=== PATIENT | female | born 1990 | race Caucasian/White ===

== ENCOUNTER 2020-02-26 10:26 | Emergency (ER) | payer MEDICAID, SELFPAY ==
[2020-02-26 11:11] VITALS: BP 151/89; PULSE 72; RESP 16; TEMP 36.8; O2SAT 99
--- NOTE | 2020-02-26 11:42 | ED.EAR ---
HPI - Ear Problem General Chief complaint: Ear Stated complaint: R Ear infection/ Vomiting Source: patient Mode of arrival: ambulatory Limitations: no limitations History of Present Illness HPI Narrative: this 29-year-old complains of severe pain in her right ear which started 2 days ago. It is associated with nausea and vomiting 2 times last night and once this morning. She has nausea currently. She denies fevers, chills, runny nose sore throat cough. She has had minor left-sided abdominal discomfort for the last day. No diarrhea Related Data Allergies Allergy/AdvReac Type Severity Reaction Status Date / Time No Known Allergies Allergy Verified 02/26/20 11:14 Review of Systems Constitutional: Constitutional: Reports no additional constitutional complaints ENT: Reports nasal congestion Neurologic: Comments: headache Course Course Emergency Course: At 18:10 pt called. Pharmacy would not take script. A second script was issued. Vital Signs Vital signs: Vital Signs Temperature 36.8 C 02/26/20 11:11 Pulse Rate 72 02/26/20 11:11 Respiratory Rate 16 02/26/20 11:11 Blood Pressure 151/89 H 02/26/20 11:11 Pulse Oximetry 99 02/26/20 11:11 Temperature 36.8 C 02/26/20 11:11 Pulse Rate 72 02/26/20 11:11 Respiratory Rate 20 02/26/20 12:06 Blood Pressure 151/89 H 02/26/20 11:11 Pulse Oximetry 99 02/26/20 11:11 Medical Decision Making Vital Signs Vital Signs: Vital Signs Temperature 36.8 C 02/26/20 11:11 Pulse Rate 72 02/26/20 11:11 Respiratory Rate 16 02/26/20 11:11 Blood Pressure 151/89 H 02/26/20 11:11 Pulse Oximetry 99 02/26/20 11:11 Temperature 36.8 C 02/26/20 11:11 Pulse Rate 72 02/26/20 11:11 Respiratory Rate 20 02/26/20 12:06 Blood Pressure 151/89 H 02/26/20 11:11 Pulse Oximetry 99 02/26/20 11:11 Discharge Plan Discharge Clinical Impression: Otitis externa Patient Disposition: Home, Self-Care Condition: Stable Instructions: Antibiotic Form, Otitis Externa (ED) Additional Instructions: Return to E.D. if fever or chills. Recheck ear if not better by tomorrow or pain free 02/27. Prescriptions: New hydrocodone-acetaminophen [[place]] 5-325 mg tablet 1 tablet PO Q4H PRN (Reason: pain) Qty: 10 RF: 0 ciprofloxacin HCl [Cipro] 500 mg tablet 500 mg PO Q12H Qty: 20 RF: 0 ondansetron HCl [Zofran] 4 mg tablet 4 mg PO Q6H PRN (Reason: nausea and vomiting) Qty: 6 RF: 0 Follow-up/Referrals: UNKNOWN,DOCTOR [Primary Care Provider] - Time of Disposition: 12:02 Discharge Date/Time: 02/26/20 12:09
[2020-02-26] MEDS: ONDANSETRON HCL ODT 4 MG TABLET PO (11:52)
--- NOTE | 2020-02-26 12:01 | PC.NURSE ---
ERP AT BEDSIDE FOR EAR WICK INSERTION WHILE USING CORTISPORIN GTT
[2020-02-26 12:06] VITALS: RESP 20
== END 2020-02-26 12:09 | disposition home or self-care (01) ==
PROVIDERS: Emergency Provider Family Medicine
DX: H60.91 Unspecified otitis externa, right ear (principal)
CPT/HCPCS: 99281; 99283; A9270

== ENCOUNTER 2020-04-23 08:35 | Emergency (ER) | payer MEDICAID, SELFPAY ==
[2020-04-23 08:40] VITALS: BP 121/76; PULSE 94; RESP 16; TEMP 36.7; O2SAT 98
--- NOTE | 2020-04-23 09:17 | ED.GENADULT ---
HPI - General Adult General Chief complaint: Ear Stated complaint: ear infection History of Present Illness HPI narrative: Florence is a 30F with a PMH of recurrent otitis externa that presented to clinic with bilateral ear pain. She was diagnosed with otitis externa in her right ear 1 week ago and was treated at [facility] with drop (unknown name). She was getting better but 2 days ago she started having pain in her left ear. She used the drops but ran out and is now having more pain that is also associated with nausea and 2 episodes of NBNB vomiting. No CP, SOB, diarrhea, headache, hearing or vision changes. Related Data Allergies Allergy/AdvReac Type Severity Reaction Status Date / Time No Known Allergies Allergy Verified 02/26/20 11:14 Review of Systems Constitutional: Constitutional: Reports no additional constitutional complaints Eyes: Eyes: Reports no additional eye complaints ENT: Reports as per HPI Cardiovascular: Cardiovascular: Reports no additional cardiovascular complaints Respiratory: Respiratory: Reports no additional respiratory complaints Gastrointestinal: Gastrointestinal: Reports nausea and Reports vomiting Genitourinary: Genitourinary: Reports no additional female genitourinary complaints Musculoskeletal: Musculoskeletal: Reports no additional musculoskeletal complaints Integumentary/Breasts: Skin/Breast: Reports system reviewed and no additional complaints, except as docu Neurologic: Reports system reviewed and no additional complaints, except as documented Psychiatric: Psychiatric: Reports no additional psychiatric complaints Endocrine: Endocrine: Reports no additional endocrine complaints Hematologic/Lymphatic: Hematologic/Lymphatic: Reports no additional hematologic/lymphatic complaints Allergic/Immunologic: Allergic/Immunologic: Reports no additional allergic/immunologic complaints Exam Const: General: no acute distress and alert Orientation/consciousness: patient oriented x3 Limitations: No altered mental status HENMT: Other: significant erythema and swelling in the external ear canal bilaterally but much worse on the left. Both ears are tender to manipulation, with the left hurting more. Submandibular lymphadenopathy bilaterally Eyes: Pupils: Equal, round and reactive pupils present Neck: Neck: normal visual inspection Resp: Effort & Inspection: normal respiratory effort, not labored and not tachypneic Cardio: Rate: regular rate Other: No edema GI: GI Palp: Yes Soft to palpation and No Tenderness to palpation present (GI) Skin: General skin exam: normal color Rashes: no rashes Neuro: General: patient oriented x3 and moves all extremities Extrem: General: normal to inspection Psych: Mental Status: mental status grossly normal Course Course Emergency Course: Florence was seen and evaluated. She was given toradol for pain, and zofran for nausea. She was discharged with a script for ciprodex ear drops, zofran and a list of PCPs in the area to f/u with. Vital Signs Vital signs: Vital Signs Temperature 98.1 F 04/23/20 08:40 Pulse Rate 94 04/23/20 08:40 Respiratory Rate 16 04/23/20 08:40 Blood Pressure 121/76 04/23/20 08:40 Pulse Oximetry 98 04/23/20 08:40 Temperature 98.1 F 04/23/20 08:40 Pulse Rate 94 04/23/20 08:40 Respiratory Rate 16 04/23/20 08:40 Blood Pressure 121/76 04/23/20 08:40 Pulse Oximetry 98 04/23/20 08:40 Medical Decision Making Vital Signs Vital Signs: Vital Signs Temperature 98.1 F 04/23/20 08:40 Pulse Rate 94 04/23/20 08:40 Respiratory Rate 16 04/23/20 08:40 Blood Pressure 121/76 04/23/20 08:40 Pulse Oximetry 98 04/23/20 08:40 Temperature 98.1 F 04/23/20 08:40 Pulse Rate 94 04/23/20 08:40 Respiratory Rate 16 04/23/20 08:40 Blood Pressure 121/76 04/23/20 08:40 Pulse Oximetry 98 04/23/20 08:40 Discharge Plan Discharge Clinical Impression: Otitis externa
[2020-04-23] MEDS: KETOROLAC (*BKC) 60 MG/2 ML VIAL 30 MG IM (09:28)
[2020-04-23] MEDS: ONDANSETRON HCL ODT 4 MG TABLET PO (09:29)
== END 2020-04-23 09:38 | disposition home or self-care (01) ==
PROVIDERS: Emergency Provider Family Medicine
DX: H60.93 Unspecified otitis externa, bilateral (principal)
CPT/HCPCS: 96372; 99283; A9270; J1885

== ENCOUNTER 2020-10-12 10:51 | Emergency (ER) | payer BC, SELFPAY ==
--- NOTE | ~2020-10-12 | CT_ITS ---
EXAMINATION: CT brain wo con INDICATION: Headache COMPARISON: None TECHNIQUE: Standard unenhanced head CT. The dose-length product (DLP) was 529.67 mGy-cm. The mA was a djusted according to patient size. Iterative reconstruction technique was employed. FINDINGS: There is no intracranial hemorrhage, acute infarction, or abnormal mass lesion. The inferio r most aspect of the right temporal lobe is excluded from the examination. The ventricles are normal. There is no abnormal mass effect or midline shift. The saleh-white matter differentiation is normal. The basal cisterns are patent. The orbits are normal. There is near complete opacification of the lef t frontal sinus. There is mucosal thickening of the right frontal sinus. IMPRESSION: 1. No acute intracranial abnormality. 2. Significant left frontal sinusitis. Reviewed, dictated and finalized at location A. RMATION CLERK
[2020-10-12 11:20] VITALS: BP 110/59; PULSE 66; RESP 15; TEMP 37; O2SAT 96
--- NOTE | 2020-10-12 11:22 | ED.HA ---
HPI - Headache General Chief Complaint: Headache Stated Complaint: Vomiting,Headache Time Seen by Provider: 10/12/20 11:22 Source: patient Mode of arrival: ambulatory Limitations: no limitations History of Present Illness HPI Narrative: 30-year-old woman comes in today complaining of 2-3 days of headache, photophobia and vomiting. Patient states that she has had similar headaches with vomiting and photophobia intermittently over the last 2 years. She usually takes some Excedrin for them. Patient states she has been exposed to 2 people with COVID-19 but is not had any other sick exposures. She denies cough, cold symptoms, shortness of breath, abdominal pain, diarrhea, rash, neck stiffness, or recent head injury. She has no history of seizures MD elicited complaint: headache Onset (ago): day(s) (2-3) Onset description: gradually Location: frontal Severity: severe Quality & Timing: throbbing Exacerbating factors: light Relieving factors: nothing Associated symptoms: nausea, vomiting and photophobia Treatments prior to arrival: other ( Excedrin) Related Data Home Medications Medication Instructions Recorded Confirmed citalopram 20 mg PO DAILY 10/12/20 10/12/20 Allergies Allergy/AdvReac Type Severity Reaction Status Date / Time No Known Allergies Allergy Verified 04/23/20 09:58 Review of Systems Constitutional: Constitutional: Denies chills, Denies fever(s) and Denies weakness Eyes: Eyes: Denies change in vision and Reports photophobia ENT: Denies dysphagia, Denies nasal congestion and Denies sore throat Cardiovascular: Cardiovascular: Denies chest pain and Denies radiating jaw, neck or arm pain Respiratory: Respiratory: Denies cough, Denies dyspnea and Denies wheezing Gastrointestinal: Gastrointestinal: Denies abdominal pain, Denies diarrhea, Reports nausea and Reports vomiting Genitourinary: Genitourinary: Denies nocturia and Denies dysuria Musculoskeletal: Musculoskeletal: Denies arthralgias and Denies joint swelling Integumentary/Breasts: Skin/Breast: Denies pruritus, Denies erythema and Denies rash Neurologic: Denies vertigo, Denies dizziness and Denies syncope Hematologic/Lymphatic: Hematologic/Lymphatic: Denies easy bleeding and Denies easy bruising Allergic/Immunologic: Allergic/Immunologic: Denies lip swelling and Denies throat swelling [facility] Past Medical History Medical History (Updated 10/12/20 @ 13:34 by Branden España MD) Depression Surgical History Surgical History (Updated 10/12/20 @ 12:08 by Branden España MD) H/O nasal polypectomy H/O wrist surgery H/O: Social History Social History Smoking status: Never smoker Alcohol intake: never Substance use type: marijuana Living arrangements: with family Exam Const: General: healthy appearing and alert Nutritional Appearance: obese Orientation/consciousness: patient oriented x3 Other: moderate acute distress. HENMT: Head: normal to inspection Ears: external ears normal, TM's normal bilaterally and EAC's normal Throat: posterior oropharynx normal and uvula midline Eyes: Conjunctivae: conjunctivae normal Pupils: Equal, round and reactive pupils present EOM: EOMs intact bilaterally Direct Ophthalmoscopy: photophobia Neck: Neck: no meningeal signs Resp: Effort & Inspection: normal respiratory effort and not labored Auscultation: clear to auscultation bilaterally, no rales, no rhonchi and no wheezes Cardio: Rate: regular rate Rhythm: regular rhythm Heart sounds: no murmurs Skin: General skin exam: normal color, no jaundice and no pallor Rashes: no rashes Neuro: General: patient oriented x3, moves all extremities, no focal motor deficits and CN's II-XI intact bilaterally Speech: normal speech Gait exam (Neuro): Normal gait present Extrem: General: normal to inspection and no clubbing, cyanosis or edema Psych: Appearance: grossly
[2020-10-12] MEDS: SODIUM CHLORIDE 0.9% IV 1,000 ML 999 ML IV CONT (11:51)
[2020-10-12] MEDS: ONDANSETRON INJ 4 MG/2 ML VIAL IV PUSH (11:51)
[2020-10-12 12:01] LABS: Basophils Absolute Auto 0.05 K/mm3 (0.00-0.10); Basophils Percent Auto 0.8 % (0.0-1.0); Eosinophils Absolute Auto 0.26 K/mm3 (0.02-0.50); Hematocrit 42.8 % (35.0-49.0); Immature Granulocyte Absolute 0.04 K/mm3 (0.00-0.00); Immature Granulocyte Percent A 0.6 % (0.0-0.0); Lymphocytes Absolute Auto 2.12 K/mm3 (1.10-4.50); Mean Corpuscular Hemoglobin 33.3 pg (27.0-31.0); Mean Corpuscular Volume 95.1 fL (78.0-102.0); Mean Platelet Volume 10.2 fl (9.2-11.8); Monocytes Absolute Auto 0.35 K/mm3 (0.10-0.90); Monocytes Percent Auto 5.5 % (2.0-11.0); Neutrophils Absolute Auto 3.6 K/mm3 (1.7-7.2); Neutrophils Percent Auto 56.1 % (50.0-70.0); Platelet Count Result 208 K/mm3 (150-420); Red Cell Distribution Width 12.2 % (11.6-14.4); White Blood Count 6.4 K/mm3 (4.8-10.8)
[2020-10-12 12:03] LABS: Add Urine Microscopic? YES; Appearance Urine Sl Cloudy (Clear); Bilirubin Urine 1+ (Negative); Blood Urine Negative (Negative); Color Urine Yellow (Yellow); Glucose Urine UA Negative (Negative); Ketones Urine Negative (Negative); Leukocyte Esterase Ur Trace (Negative); Nitrate Urine Negative (Negative); Protein Urine Negative (Negative); Specific Grav Ur >= 1.030 (1.010-1.020)
[2020-10-12 12:08] LABS: Amphetamine Screen Urine Negative (Negative); Barbiturate Screen Urine Negative (Negative); Benzodiazepines Screen Urine Negative (Negative); Cannabinoid Screen Urine Positive (Negative); Cocaine Screen Urine Negative (Negative); Methadone Screen Urine Negative (Negative); Opiate Screen Urine Negative (Negative); Phencyclidine Screen Urine Negative (Negative)
[2020-10-12 12:11] LABS: Pregnancy On Board Control Positive; RBC Urine 0-2 /hpf (0-2); Squamous Epithelial Cell Urine Moderate /hpf (Few); Urine Pregnancy Test Negative
[2020-10-12 12:12] LABS: Bacteria Urine 1+ /hpf; Mucus Urine Moderate /lpf
[2020-10-12 12:15] LABS: Alanine Aminotransferase 43 U/L (14-59); Albumin Level 4.3 g/dL (3.4-5.0); Alkaline Phosphatase 82 U/L (46-116); Anion Gap 8 mmol/L (8-16); Aspartate Amino Transferase 23 U/L (15-37); Bilirubin,Total 1.4 mg/dL (0.00-1.00); Blood Urea Nitrogen 15 mg/dL (7-18); Calcium 9.1 mg/dL (8.5-10.1); Carbon Dioxide 31 mmol/L (21-32); Chloride 100 mmol/L (98-108); Estimated Glomerular Filt Rate > 60; Glucose 88 mg/dL (70-99); Lipase 41 U/L (73-393); Osmolality Calculated 287 mOsm/kg (285-295); Potassium 3.7 mmol/L (3.5-5.1); Sodium 139 mmol/L (136-145); Total Protein 7.8 g/dL (6.4-8.2)
[2020-10-12 12:22] LABS: SARS-CoV-2 Ag Negative (Negative)
[2020-10-12 12:22] LABS: Influenza Control Valid (Valid)
[2020-10-12] MEDS: PROMETHAZINE HCL 25 MG/ML AMPUL IM (13:00)
[2020-10-12] MEDS: KETOROLAC 30 MG/ML VIAL (*BKC) IV PUSH (13:00)
[2020-10-12 14:02] VITALS: BP 101/79
== END 2020-10-12 14:04 | disposition home or self-care (01) ==
PROVIDERS: Emergency Provider Emergency Medicine
DX: R51.9 Headache, unspecified (principal); J01.10 Acute frontal sinusitis, unspecified
CPT/HCPCS: 36415; 70450; 80053; 80307; 81001; 81025; 83690; 85025; 87426; 87804; 96361; 96372; 96374; 96375; 99283; 99284; C9803; J1885; J2405; J2550; J7030

== ENCOUNTER 2020-12-27 11:50 | Emergency (ER) | payer BC, SELFPAY ==
--- NOTE | ~2020-12-27 | CT_ITS ---
EXAMINATION: CT abdomen pelvis w con INDICATION: Lower abdominal pain TECHNIQUE: Computed tomographic images of the abdomen and pelvis were obtained after the administrati on of 100 cc of Omnipaque 350 intravenous contrast. The dose-length product (DLP) was 682.88 mGy-cm. Automated exposure control and iterative reconstruction technique were employed. COMPARISON: None available FINDINGS: The lung bases are clear. The heart size is normal. The liver, spleen, gallbladder, and adr enal glands are normal. There is focal low attenuation in the head of the pancreas with normal appear ing remainder of the pancreas and no pancreatic ductal dilatation, likely reflecting fatty infiltrati on. The kidneys are unremarkable. The appendix is normal. No pathologically enlarged abdominal or pel debbie lymph nodes are identified. There is no free intraperitoneal gas or evidence of bowel obstruction . IMPRESSION: 1. No CT correlate for the patient's symptoms. Reviewed, dictated and finalized at location A.
[2020-12-27 12:20] VITALS: BP 133/92; PULSE 97; RESP 20; TEMP 36.9; O2SAT 97
[2020-12-27 12:50] VITALS: BP 120/72
[2020-12-27] MEDS: DICYCLOMINE HCL INJ 20 MG/2 ML VIAL IM (13:00)
[2020-12-27] MEDS: ONDANSETRON HCL ODT 4 MG TABLET PO ×2 (13:00→14:26)
[2020-12-27 13:02] LABS: Basophils Absolute Auto 0.03 K/mm3 (0.00-0.10); Basophils Percent Auto 0.4 % (0.0-1.0); Eosinophils Absolute Auto 0.18 K/mm3 (0.02-0.50); Eosinophils Percent Auto 2.4 % (1.0-6.0); Hematocrit 43.2 % (35.0-49.0); Immature Granulocyte Absolute 0.02 K/mm3 (0.00-0.00); Immature Granulocyte Percent A 0.3 % (0.0-0.0); Lymphocytes Absolute Auto 1.12 K/mm3 (1.10-4.50); Lymphocytes Percent Auto 15.2 % (18.0-42.0); Mean Corpuscular HGB Conc 34.7 g/dL (32.0-36.0); Mean Corpuscular Hemoglobin 32.8 pg (27.0-31.0); Mean Corpuscular Volume 94.3 fL (78.0-102.0); Mean Platelet Volume 10.3 fl (9.2-11.8); Monocytes Absolute Auto 0.34 K/mm3 (0.10-0.90); Monocytes Percent Auto 4.6 % (2.0-11.0); Neutrophils Absolute Auto 5.7 K/mm3 (1.7-7.2); Neutrophils Percent Auto 77.1 % (50.0-70.0); Platelet Count Result 194 K/mm3 (150-420); Red Blood Count 4.58 M/mm3 (4.20-5.40); Red Cell Distribution Width 11.8 % (11.6-14.4); White Blood Count 7.4 K/mm3 (4.8-10.8)
[2020-12-27 13:08] LABS: Add Urine Microscopic? YES; Appearance Urine Clear (Clear); Bilirubin Urine Negative (Negative); Blood Urine Negative (Negative); Color Urine Yellow (Yellow); Glucose Urine UA Negative (Negative); Ketones Urine Negative (Negative); Leukocyte Esterase Ur Negative (Negative); Nitrate Urine Negative (Negative); Protein Urine 1+ (Negative); Specific Grav Ur 1.015 (1.010-1.020); Urobilinogen Urine 0.2 mg/dL (0.2-1.0); pH Urine 8.5 (5.0-8.0)
--- NOTE | 2020-12-27 13:08 | PC.NURSE ---
pt ambulated to bathroom slowly with stand by assist from this rn. back to room , head of bed elevated for comfort, call baltazar in reach.
[2020-12-27 13:12] LABS: Bacteria Urine 1+ /hpf; Mucus Urine Moderate /lpf; RBC Urine None seen /hpf (0-2); Squamous Epithelial Cell Urine Few /hpf (Few); Urine Pregnancy Test Negative; WBC Urine None seen /hpf (0-3)
[2020-12-27 13:13] LABS: Pregnancy On Board Control Positive
[2020-12-27 13:15] LABS: Alanine Aminotransferase 25 U/L (14-59); Albumin Level 3.9 g/dL (3.4-5.0); Alkaline Phosphatase 85 U/L (46-116); Anion Gap 9 mmol/L (8-16); Aspartate Amino Transferase 16 U/L (15-37); Bilirubin,Total 1.1 mg/dL (0.00-1.00); Blood Urea Nitrogen 17 mg/dL (7-18); Calcium 8.8 mg/dL (8.5-10.1); Carbon Dioxide 27 mmol/L (21-32); Chloride 102 mmol/L (98-108); Estimated CRCL calculation 133 ml/min; Estimated Glomerular Filt Rate > 60; Glucose 106 mg/dL (70-99); Lipase 32 U/L (73-393); Osmolality Calculated 287 mOsm/kg (285-295); Potassium 3.7 mmol/L (3.5-5.1); Sodium 138 mmol/L (136-145); Total Protein 7.1 g/dL (6.4-8.2)
[2020-12-27 13:20] LABS: Amphetamine Screen Urine Negative (Negative); Barbiturate Screen Urine Negative (Negative); Benzodiazepines Screen Urine Negative (Negative); Cannabinoid Screen Urine Positive (Negative); Cocaine Screen Urine Negative (Negative); Methadone Screen Urine Negative (Negative); Opiate Screen Urine Negative (Negative); Phencyclidine Screen Urine Negative (Negative)
[2020-12-27] MEDS: KETOROLAC 30 MG/ML VIAL (*BKC) IV PUSH (14:25)
[2020-12-27] MEDS: LACTATED RINGERS 1,000 ML 999 ML IV CONT (14:25)
--- NOTE | 2020-12-27 16:02 | ED.ABDPAIN ---
HPI - Abdominal Pain General Chief Complaint: Abdominal Pain Stated Complaint: abd pain, nausea, vomitting, diarrhea Time Seen by Provider: 12/27/20 12:40 Source: patient Mode of arrival: ambulatory Limitations: no limitations History of Present Illness HPI narrative: Patient comes in with nausea and vomiting since Tuesday morning. She comes in because she says this has been ongoing, and she has had no relief. She has had associated loose stools. This has been ongoing not relieved by measures taken at home. MD elicited complaint: abdominal pain Onset (ago): hour(s) Pain Consistency: intermittent and colicky Location: diffuse Severity: moderate Quality: cramping Related Data Home Medications Medication Instructions Recorded Confirmed citalopram 20 mg PO DAILY 10/12/20 12/27/20 Allergies Allergy/AdvReac Type Severity Reaction Status Date / Time apple Allergy Swelling Verified 12/27/20 13:46 of Lip/Tongue/Throat banana Allergy Swelling Verified 12/27/20 13:46 of Lip/Tongue/Throat cinnamon Allergy Swelling Verified 12/27/20 13:46 of Lip/Tongue/Throat orange Allergy Swelling Verified 12/27/20 13:46 of Lip/Tongue/Throat pollen extracts Allergy Swelling Verified 12/27/20 13:46 of Lip/Tongue/Throat Review of Systems Constitutional: Constitutional: Reports no additional constitutional complaints Eyes: Eyes: Reports no additional eye complaints ENT: Reports system reviewed and no additional complaints, except as documented Cardiovascular: Cardiovascular: Reports no additional cardiovascular complaints Respiratory: Respiratory: Reports no additional respiratory complaints Gastrointestinal: Gastrointestinal: Reports no additional gastrointestinal complaints Genitourinary: Genitourinary: Reports no additional female genitourinary complaints Musculoskeletal: Musculoskeletal: Reports no additional musculoskeletal complaints Integumentary/Breasts: Skin/Breast: Reports system reviewed and no additional complaints, except as docu Neurologic: Reports system reviewed and no additional complaints, except as documented Psychiatric: Psychiatric: Reports no additional psychiatric complaints Endocrine: Endocrine: Reports no additional endocrine complaints Hematologic/Lymphatic: Hematologic/Lymphatic: Reports no additional hematologic/lymphatic complaints PMF Past Medical History Medical History Depression Surgical History Surgical History H/O nasal polypectomy H/O wrist surgery H/O: Family History Family History Father COPD (chronic obstructive pulmonary disease) Social History Social History Smoking status: Never smoker Alcohol intake: never Substance use type: marijuana Exam Const: General: no acute distress Orientation/consciousness: patient oriented x3 HENMT: Head: normal to inspection Face and sinus: normal facial exam Mouth: Yes Normal oral and palatal mucosa present Throat: posterior oropharynx normal Eyes: Conjunctivae: conjunctivae normal Neck: Neck: normal visual inspection Chest: Chest palpation & inspection: normal inspection of the chest Resp: Effort & Inspection: normal respiratory effort Auscultation: clear to auscultation bilaterally Cardio: Rate: regular rate Rhythm: regular rhythm GI: GI Palp: Yes Soft to palpation (nontender) Skin: General skin exam: normal color Neuro: General: patient oriented x3 and moves all extremities Extrem: General: normal to inspection Psych: Appearance: grossly normal Mental Status: mental status grossly normal Thought content: Yes Normal thought content present Course Course Emergency Course: Labs were reviewed. She was given bentyl 20mg Im and zofran 4
[2020-12-27 16:13] VITALS: BP 112/63; PULSE 59; RESP 20; TEMP 36.9; O2SAT 98
--- NOTE | 2020-12-27 16:14 | PC.NURSE ---
primary care provider list given to pt.
== END 2020-12-27 16:15 | disposition home or self-care (01) ==
PROVIDERS: Emergency Provider Emergency Medicine
DX: R10.9 Unspecified abdominal pain (principal)
CPT/HCPCS: 36415; 74177; 80053; 80307; 81001; 81025; 83690; 85025; 96361; 96372; 96374; 99283; 99284; A9270; J0500; J1885; J7120; Q9967

== ENCOUNTER 2021-04-12 19:30 | Emergency (ER) | payer BC, SELFPAY ==
--- NOTE | ~2021-04-12 | CT_ITS ---
EXAMINATION: CT brain wo [facility] EXAM DATE: 04/12/2021 20:31 INDICATION: Fall, head injury. TECHNIQUE: Spiral CT of the head was performed without contrast. Axial, coronal and sagittal images were reviewed. The dose-length product (DLP) for this examination was 605.33 mGy-cm. The exposure w as tailored according to patient size, and iterative reconstruction (ASIR) was used as additional dos e reduction technique. Comparison is made to prior examination from 10/12/2020. FINDINGS: There is no acute intraparenchymal hemorrhage. No evidence of intraparenchymal brain mass lesion. No evidence of acute infarction. There is no mass effect or midline shift. The ventricles are normal in size. There are no extra-axial collections. There are no acute calvarial fractures. T he orbits are unremarkable. Soft tissue is unremarkable. Mild to moderate right frontal and ethmoid mucoperiosteal thickening. IMPRESSION: No acute intracranial findings. Reviewed, dictated and finalized at location A.
[2021-04-12 19:30] VITALS: BP 116/77; PULSE 72; RESP 20; TEMP 37; O2SAT 98
--- NOTE | 2021-04-12 19:38 | ED.HEATRA ---
HPI - Head Injury General Chief complaint: Head Injury Stated complaint: concussion Source: patient and RN notes reviewed Mode of arrival: wheelchair Limitations: no limitations History of Present Illness HPI Narrative: Last evening patient was getting out of an above ground pool and slipped on the ladder and fell into some bushes striking her left cheek and head. She is not sure if she lost consciousness. Today she has had more difficulty at work. She has had headache. She thinks she may have had a concussion. Complaint: head injury Onset (ago): hour(s) (20) Mechanism of Injury: fall Place: home Loss of Consciousness: unsure Location of injury: occipital and face Severity: moderate Quality: dull and aching Associated symptoms: weakness (generalized) Related Data Home Medications Medication Instructions Recorded Confirmed No Home Medications 04/12/21 04/12/21 Allergies Allergy/AdvReac Type Severity Reaction Status Date / Time apple Allergy Swelling Verified 12/27/20 13:46 of Lip/Tongue/Throat banana Allergy Swelling Verified 12/27/20 13:46 of Lip/Tongue/Throat cinnamon Allergy Swelling Verified 12/27/20 13:46 of Lip/Tongue/Throat orange Allergy Swelling Verified 12/27/20 13:46 of Lip/Tongue/Throat pollen extracts Allergy Swelling Verified 12/27/20 13:46 of Lip/Tongue/Throat Review of Systems Review of Systems: All systems reviewed & are unremarkable except as noted in HPI and below Constitutional: Constitutional: Denies chills and Denies fever(s) Cardiovascular: Cardiovascular: Denies chest pain Respiratory: Respiratory: Denies dyspnea Gastrointestinal: Gastrointestinal: Denies diarrhea, Denies nausea and Denies vomiting Neurologic: Denies dizziness, Reports headache(s) and Denies focal weakness PMFSH Past Medical History Medical History Depression Surgical History Surgical History H/O nasal polypectomy H/O wrist surgery H/O: Family History Family History Father COPD (chronic obstructive pulmonary disease) Social History Social History Smoking status: Never smoker Alcohol intake: never Substance use type: marijuana Exam Const: General: no acute distress and alert Nutritional Appearance: well nourished and obese morbidly obese Orientation/consciousness: patient oriented x3 Other: Female nurse in room during examination. HENMT: Head: normal to inspection Ears: external ears normal Mouth: Yes lip normal and Yes moist mucous membranes Eyes: Conjunctivae: conjunctivae normal Pupils: Equal, round and reactive pupils present EOM: EOMs intact bilaterally Neck: Neck: normal visual inspection Resp: Effort & Inspection: normal respiratory effort Auscultation: clear to auscultation bilaterally Cardio: Rate: regular rate Rhythm: regular rhythm GI: GI Palp: Yes Soft to palpation and No Tenderness to palpation present (GI) Auscultation: normal bowel sounds Back/Spine/Pelvis: Cervical Spine: cervical ROM normal Thoracic/Lumbar Spine: thoraco-lumbar ROM normal Skin: General skin exam: normal color Rashes: no rashes Trauma: abrasion (left cheek) Neuro: General: moves all extremities, no meningeal signs and no focal motor deficits Speech: Abnormal speech present (quiet soft responses) Extrem: General: normal to inspection and no clubbing, cyanosis or edema Psych: Appearance: grossly normal and well kempt Mental Status: mental status grossly normal Affect: normal affect Attitude: cooperative Thought content: Yes Normal thought content present MDM - Head Injury Lab Data Attestation: I reviewed the patient's lab results. Imaging Data Radiologist's impression: no acute CT finding Discharg
[2021-04-12 20:07] LABS: Basophils Absolute Auto 0.06 K/mm3 (0.00-0.10); Basophils Percent Auto 0.7 % (0.0-1.0); Eosinophils Absolute Auto 0.47 K/mm3 (0.02-0.50); Eosinophils Percent Auto 5.2 % (1.0-6.0); Hemoglobin 12.7 g/dL (12.0-15.0); Immature Granulocyte Absolute 0.04 K/mm3 (0.00-0.00); Immature Granulocyte Percent A 0.4 % (0.0-0.0); Lymphocytes Absolute Auto 2.54 K/mm3 (1.10-4.50); Lymphocytes Percent Auto 28.3 % (18.0-42.0); Mean Corpuscular HGB Conc 33.4 g/dL (32.0-36.0); Mean Corpuscular Hemoglobin 31.3 pg (27.0-31.0); Mean Corpuscular Volume 93.6 fL (78.0-102.0); Mean Platelet Volume 9.9 fl (9.2-11.8); Monocytes Absolute Auto 0.58 K/mm3 (0.10-0.90); Monocytes Percent Auto 6.5 % (2.0-11.0); Neutrophils Absolute Auto 5.3 K/mm3 (1.7-7.2); Neutrophils Percent Auto 58.9 % (50.0-70.0); Platelet Count Result 306 K/mm3 (150-420); Red Blood Count 4.06 M/mm3 (4.20-5.40); Red Cell Distribution Width 12.4 % (11.6-14.4)
[2021-04-12 20:19] LABS: Alanine Aminotransferase 27 U/L (14-59); Albumin Level 3.8 g/dL (3.4-5.0); Alkaline Phosphatase 128 U/L (46-116); Amphetamine Screen Urine Negative (Negative); Anion Gap 10 mmol/L (8-16); Aspartate Amino Transferase 16 U/L (15-37); Barbiturate Screen Urine Negative (Negative); Benzodiazepines Screen Urine Negative (Negative); Bilirubin,Total 0.3 mg/dL (0.00-1.00); Blood Urea Nitrogen 16 mg/dL (7-18); Calcium 9.4 mg/dL (8.5-10.1); Cannabinoid Screen Urine Positive (Negative); Carbon Dioxide 28 mmol/L (21-32); Chloride 104 mmol/L (98-108); Cocaine Screen Urine Negative (Negative); Estimated CRCL calculation 103 ml/min; Estimated Glomerular Filt Rate > 60; Ethanol 3 mg/dL (0-6); Glucose 82 mg/dL (70-99); Methadone Screen Urine Negative (Negative); Opiate Screen Urine Negative (Negative); Osmolality Calculated 294 mOsm/kg (285-295); Phencyclidine Screen Urine Negative (Negative); Potassium 3.8 mmol/L (3.5-5.1); Sodium 142 mmol/L (136-145); Total Protein 7.5 g/dL (6.4-8.2)
--- NOTE | 2021-04-12 20:48 | PC.NURSE ---
pt resting per cot. ice pack to face. awaiting ct results. lights dimmed for comfort. call baltazar in reach.
[2021-04-12 20:58] VITALS: BP 120/74; PULSE 75; RESP 20; TEMP 36.6; O2SAT 98
--- NOTE | 2021-04-12 21:35 | PC.NURSE ---
pt assisted to personal car per rn. explained discharge instructions to . voiced understanding
== END 2021-04-12 21:30 | disposition home or self-care (01) ==
PROVIDERS: Emergency Provider Emergency Medicine
DX: S06.0X9A Concussion with loss of consciousness of unspecified duration, initial encounter (principal); W19.XXXA Unspecified fall, initial encounter
CPT/HCPCS: 36415; 70450; 80053; 80307; 85025; 99282; 99284

== ENCOUNTER 2021-10-05 00:26 | Emergency (ER) | payer BC, SELFPAY ==
[2021-10-05 00:36] VITALS: BP 130/86; PULSE 89; RESP 20; TEMP 36.8; O2SAT 99
--- NOTE | 2021-10-05 00:41 | ED.HA ---
HPI - Headache General Chief Complaint: Headache Stated Complaint: Migraine Source: patient, EMS and RN notes reviewed Mode of arrival: ambulatory Limitations: no limitations History of Present Illness MD elicited complaint: migraine Pertinent past history: migraines Onset (ago): hour(s) (12) Onset description: suddenly Location: frontal Severity: severe Quality & Timing: throbbing and similar to previous headaches Exacerbating factors: light and noise Relieving factors: nothing Context: occurred at rest Associated symptoms: nausea and vomiting Treatments prior to arrival: none Related Data Home Medications Medication Instructions Recorded Confirmed citalopram 40 mg PO DAILY 10/05/21 10/05/21 Allergies Allergy/AdvReac Type Severity Reaction Status Date / Time apple Allergy Swelling Verified 12/27/20 13:46 of Lip/Tongue/Throat banana Allergy Swelling Verified 12/27/20 13:46 of Lip/Tongue/Throat cinnamon Allergy Swelling Verified 12/27/20 13:46 of Lip/Tongue/Throat orange Allergy Swelling Verified 12/27/20 13:46 of Lip/Tongue/Throat pollen extracts Allergy Swelling Verified 12/27/20 13:46 of Lip/Tongue/Throat Review of Systems Review of Systems: All systems reviewed & are unremarkable except as noted in HPI and below Constitutional: Constitutional: Reports chills and Denies fever(s) Eyes: Eyes: Denies change in vision and Reports photophobia Cardiovascular: Cardiovascular: Denies chest pain Respiratory: Respiratory: Reports cough (started today) and Denies dyspnea Gastrointestinal: Gastrointestinal: Reports diarrhea, Reports nausea and Reports vomiting Musculoskeletal: Musculoskeletal: Reports myalgias Neurologic: Comments: lost sense of taste today. PMFSH Past Medical History Medical History Depression Surgical History Surgical History H/O nasal polypectomy H/O wrist surgery H/O: Family History Family History Father COPD (chronic obstructive pulmonary disease) Social History Social History Smoking status: Never smoker Alcohol intake: never Substance use type: marijuana Exam Const: General: healthy appearing, no acute distress and alert Nutritional Appearance: well nourished Orientation/consciousness: patient oriented x3 Other: Female nurse in room during examination. HENMT: Head: normal to inspection Ears: external ears normal and TM's normal bilaterally General nose exam: Normal external nose present and Normal nares present Face and sinus: normal facial exam Eyes: Conjunctivae: conjunctivae normal Pupils: Equal, round and reactive pupils present EOM: EOMs intact bilaterally Direct Ophthalmoscopy: photophobia Neck: Neck: normal visual inspection and no meningeal signs Resp: Effort & Inspection: normal respiratory effort Auscultation: clear to auscultation bilaterally Cardio: Rate: regular rate Rhythm: regular rhythm GI: GI Palp: Yes Soft to palpation, No Tenderness to palpation present (GI) and No Guarding due to palpation present (GI) Auscultation: normal bowel sounds Back/Spine/Pelvis: Cervical Spine: cervical ROM normal Thoracic/Lumbar Spine: thoraco-lumbar ROM normal Skin: General skin exam: normal color Rashes: no rashes Neuro: General: patient oriented x3, moves all extremities, no meningeal signs, no focal motor deficits and CN's II-XI intact bilaterally Speech: normal speech Extrem: General: normal to inspection and no clubbing, cyanosis or edema Psych: Appearance: grossly normal and well kempt Mental Status: mental status grossly normal Affect: normal affect Attitude: cooperative Thought content: Yes Normal thought content present Course Vital Signs Vital signs:
[2021-10-05] MEDS: ONDANSETRON INJ 4 MG/2 ML VIAL IV PUSH (00:45)
[2021-10-05] MEDS: KETOROLAC 30 MG/ML VIAL (*BKC) IV PUSH (00:50)
[2021-10-05] MEDS: diphenhydrAMINE HCl INJ 50 MG/ML VIAL IV PUSH (00:50)
[2021-10-05 01:41] LABS: SARS-CoV-2 RNA PCR Negative (Negative)
[2021-10-05 02:16] VITALS: BP 104/73; PULSE 74; RESP 18; TEMP 36.6; O2SAT 99
== END 2021-10-05 02:42 | disposition home or self-care (01) ==
PROVIDERS: Emergency Provider Emergency Medicine
DX: G44.209 Tension-type headache, unspecified, not intractable (principal); Z20.822 Contact with and (suspected) exposure to COVID-19
CPT/HCPCS: 96374; 96375; 99283; 99284; C9803; J1200; J1885; J2405; U0003; U0005

== ENCOUNTER 2022-06-27 18:35 | Emergency (ER) | payer BC, SELFPAY ==
--- NOTE | ~2022-06-27 | US_ITS ---
EXAMINATION: US OB <=14 wk fetus w TV DATE: 06/27/2022 22:08 INDICATION: Vaginal bleeding. Abdominal pain. TECHNIQUE: Real-time transabdominal and transvaginal pelvic ultrasound was performed. COMPARISON: None. FINDINGS: TRANSABDOMINAL ULTRASOUND: The uterus measures 10.1 x 6.7 x 5.5 cm. TRANSVAGINAL ULTRASOUND: There is a cyst in the endometrial complex with mean diameter of 1.7 cm with internal echo measuring 4 mm. If this finding is the pole, it correlates with an estimated ges tational age of 6 weeks and 0 days +/- 4 days. No yolk sac is identified. heart motion is not identified by M-mode Doppler, which may be normal at this size. The right ovary measures 2.9 x 2.8 x 3.2 cm. The left ovary is not visualized. There is no free fluid in the pelvis. IMPRESSION: 1. Cyst with internal echo in the endometrial complex that may be a gestational sac with pole with estimated date of delivery of 02/20/2023. Spontaneous and ectopic are not exclu ded. Serial beta-hCGs are recommended. Reviewed, dictated and finalized at location A. IMPRESSION: 1. Cyst with internal echo in the endometrial complex that may be a gestationa l sac with pole with estimated date of delivery of 02/20/2023. Spontaneous and ectopic are not excluded. Serial beta-hCGs are recommend ed.
[2022-06-27 18:37] VITALS: BP 133/75; PULSE 87; RESP 18; TEMP 36.6; O2SAT 93
[2022-06-27 18:48] VITALS: BP 124/76; PULSE 83; RESP 20; TEMP 37; O2SAT 98
--- NOTE | 2022-06-27 19:16 | ED.PREGNANCY ---
HPI - General Chief complaint: Vaginal Bleeding Stated complaint: 12 weeks , vaginal bleeding Time Seen by Provider: 06/27/22 18:45 Source: patient and RN notes reviewed Mode of arrival: ambulatory Limitations: no limitations History of Present Illness HPI Narrative: This is a 32 year old female unknown [place] who presents for evaluation of vaginal bleeding. Patient states in April she went to hospital in [place] for UTI. She reports she was told at that time that she was having a miscarriage. She followed up with her PCP , and she was told her levels were increasing. She was told that she is still , but she has not received any care. She states her last menstrual cycle was in end of March but she is unsure. She has been having intermittent spotting this week. This afternoon she notices heavier vaginal bleeding when she went to restroom. She reports bleeding through her underwear because she does not have a pad. She is also complaining of left flank pain that started 2 hours ago. She has associated nausea but no vomiting. Denies dysuria. Related Data Home Medications Medication Instructions Recorded Confirmed citalopram 40 mg tablet 40 mg PO DAILY 10/05/21 10/05/21 Allergies Allergy/AdvReac Type Severity Reaction Status Date / Time apple Allergy Swelling Verified 06/27/22 18:53 of Lip/Tongue/Throat banana Allergy Swelling Verified 06/27/22 18:53 of Lip/Tongue/Throat cinnamon Allergy Swelling Verified 06/27/22 18:53 of Lip/Tongue/Throat orange Allergy Swelling Verified 06/27/22 18:53 of Lip/Tongue/Throat pollen extracts Allergy Swelling Verified 06/27/22 18:53 of Lip/Tongue/Throat Review of Systems Review of Systems: All systems reviewed & are unremarkable except as noted in HPI and below Constitutional: Constitutional: Denies chills, Denies fatigue and Denies fever(s) Respiratory: Respiratory: Denies chest congestion Gastrointestinal: Gastrointestinal: Reports abdominal pain and Reports nausea Genitourinary: Genitourinary: Reports abnormal vaginal bleeding and Denies dysuria PMF Past Medical History Medical History Depression Surgical History Surgical History H/O nasal polypectomy H/O wrist surgery H/O: Family History Family History Father COPD (chronic obstructive pulmonary disease) Social History Social History Smoking status: Never smoker Alcohol intake: never Substance use type: marijuana Exam Const: General: alert Nutritional Appearance: well nourished Orientation/consciousness: patient oriented x3 Other: patient crying HENMT: Head: normal to inspection Eyes: EOM: EOMs intact bilaterally Chest: Chest palpation & inspection: normal inspection of the chest Resp: Effort & Inspection: normal respiratory effort Auscultation: clear to auscultation bilaterally Cardio: Rate: regular rate Rhythm: regular rhythm Heart sounds: no murmurs GI: GI Palp: Yes Soft to palpation, Yes Tenderness to palpation present (GI) (epigastric, LUQ), No Guarding due to palpation present (GI) and No Rigid due to palpation Auscultation: normal bowel sounds Skin: General skin exam: normal color Rashes: no rashes Wounds: no wounds Neuro: General: patient oriented x3, moves all extremities and CN's II-XI intact bilaterally Extrem: General: normal to inspection Psych: Mental Status: mental status grossly normal Affect: normal affect Attitude: cooperative Course Reevaluation(s) Reevaluation #1: I discussed with patient ultrasound results and follow up . She understands she will need to call OB tomorrow. She was given bleeding precautions. Date: 06/27/22 Ti
[2022-06-27] MEDS: LACTATED RINGERS 1,000 ML 999 ML IV CONT (20:06)
[2022-06-27 20:21] LABS: Basophils Absolute Auto 0.1 K/mm3 (0.0-0.1); Basophils Percent Auto 0.7 % (0.2-1.2); Eosinophils Absolute Auto 0.2 K/mm3 (0-0.3); Hematocrit 37.8 % (37.0-47.0); Hemoglobin 12.6 g/dL (12.0-15.0); Immature Granulocyte Absolute 0.04 K/mm3 (0.00-0.031); Immature Granulocyte Percent A 0.6 % (0-0.5); Lymphocytes Absolute Auto 2.83 K/mm3 (0.9-3.2); Lymphocytes Percent Auto 38.9 % (18.3-44.2); Mean Corpuscular HGB Conc 33.3 g/dl (32-36); Mean Corpuscular Hemoglobin 33.8 pg (26-34); Mean Corpuscular Volume 101.3 fl (80-100); Mean Platelet Volume 9.6 fl (7.4-10.4); Monocytes Absolute Auto 0.6 K/mm3 (0.1-0.6); Monocytes Percent Auto 8.4 % (2.6-8.5); Neutrophils Absolute Auto 3.5 K/mm3 (1.3-6.7); Neutrophils Percent Auto 48.4 % (45.5-73.1); Platelet Count Result 218 k/mm3 (150-375); Red Blood Count 3.73 M/mm3 (4.2-5.4); Red Cell Distribution Width 14.1 % (11.5-14.5); White Blood Count 7.3 K/mm3 (4.5-10.0)
[2022-06-27 20:28] LABS: Add Urine Microscopic? YES; Appearance Urine Cloudy (Clear); Bilirubin Urine Negative (Negative); Blood Urine 3+ (Negative); Color Urine Yellow (Yellow); Glucose Urine UA Negative (Negative); Ketones Urine Negative (Negative); Leukocyte Esterase Ur Negative LEU/UL (Negative); Mucus Urine Rare /lpf; Nitrate Urine Negative (Negative); Protein Urine Negative (Negative); RBC Urine >75 /hpf (0-2); Specific Grav Ur 1.017 (1.001-1.035); Squamous Epithelial Cell Urine Rare /hpf (Few); Urobilinogen Urine Negative mg/dL (<2.0)
[2022-06-27 20:30] LABS: Alanine Aminotransferase 21 U/L (6-35); Albumin Level 4.4 g/dL (3.5-5.1); Alkaline Phosphatase 74 U/L (38-126); Anion Gap 7 mmol/L (8-16); Aspartate Amino Transferase 29 U/L (14-36); Bilirubin,Total 0.3 mg/dL (0.2-1.3); Blood Urea Nitrogen 13 mg/dL (7-17); Calcium 9.1 mg/dL (8.4-10.2); Carbon Dioxide 23 mmol/L (22-30); Chloride 106 mmol/L (98-107); Estimated CRCL calculation 106 ml/min; Estimated Glomerular Filt Rate > 60; Glucose 93 mg/dL (65-110); Lipase 38 U/L (23-300); Potassium 3.7 mmol/L (3.4-5.0); Sodium 136 mmol/L (137-145)
--- NOTE | 2022-06-27 22:41 | PC.NURSE ---
Flaquito- NILSA attempted to obtain heart tones but was unable to obtain.
[2022-06-27] MEDS: MORPHINE SULFATE (*CRX) 4 MG/ML INJ IV PUSH (23:27)
[2022-06-27 23:30] VITALS: BP 131/83; PULSE 83; RESP 18; O2SAT 98
== END 2022-06-28 00:01 | disposition home or self-care (01) ==
PROVIDERS: Emergency Provider General Practice
DX: O20.0 Threatened abortion (principal); O99.341 Other mental disorders complicating pregnancy, first trimester; F32.A Depression, unspecified; Z3A.08 8 weeks gestation of pregnancy
CPT/HCPCS: 36415; 76801; 76817; 80053; 81001; 81025; 83690; 84702; 85025; 85461; 96365; 96375; 99284; J0131; J2270; J7120

== ENCOUNTER 2022-07-30 12:41 | Outpatient (CLI) | payer OTHER, SELFPAY ==
--- NOTE | ~2022-07-30 | US_ITS ---
EXAMINATION: US OB <=14 wk fetus w TV DATE: 07/30/2022 13:27 INDICATION: Persistent vaginal bleeding after miscarriage one month ago TECHNIQUE: Real-time pelvic transabdominal and transvaginal ultrasound was performed. COMPARISON: None. FINDINGS: The uterus measures 8.7 x 6.1 x 4.7 cm. No intrauterine gestational sac is identified. The endometrial thickness measures up to 2.8 cm. The right ovary measures 2.5 x 2.0 x 1.3 cm. The left o vary measures 4.2 x 3.1 x 3.9 cm and contains a 3.8 cm cyst. There is normal vascular flow in the ova melody. There is no free fluid in the pelvis. IMPRESSION: 1. Thickened endometrium which could reflect retained products of conception. No definite intrauterin e identified. Reviewed, dictated and finalized at location B. L WIRE TECHNICIAN IMPRESSION: 1. Thickened endometrium which could reflect retained products of conception. N o definite intrauterine identified.
== END 2022-07-30 12:42 | disposition home or self-care (01) ==
LOC: CHSIMG 12:42
PROVIDERS: PCP Registered Nurse; Visit Provider Registered Nurse
DX: O03.9 Complete or unspecified spontaneous abortion without complication (principal)
CPT/HCPCS: 76801; 76817

== ENCOUNTER 2022-10-31 17:00 | Emergency (ER) | payer OTHER, SELFPAY ==
--- NOTE | ~2022-10-31 | XR_ITS ---
EXAM: [id number]_[id number] DATE: 10/31/2022 17:45 HISTORY: BILAT NECK PAIN/PATIENT COULD NOT LIFT EITHER ARM OR HOLD ST . COMPARISON: None available. FINDINGS: Craniocervical association and atlantoaxial joint are aligned. No prevertebral soft tissue swelling. Vertebral bodies are aligned. Vertebral body heights are maintained. Normal disc spaces. N ormal facets and posterior elements. IMPRESSION: No acute fracture or traumatic malalignment detected in the cervical spine. Reviewed, dictated and finalized at location K. ING MAN IMPRESSION: No acute fracture or traumatic malalignment detected in the cervica l spine.
--- NOTE | ~2022-10-31 | XR_ITS ---
EXAM: XR shoulder RT min 2V DATE: 10/31/2022 17:45 HISTORY: right shoulder pain/NO TRAUMA/PATIENT WOULD NOT FOLLOW [facility] . COMPARISON: None available. FINDINGS: Normal mineralization. No fracture or dislocation. No lytic or blastic lesion. Joint space s are maintained. No erosion or periosteal change. Soft tissues within normal limits. IMPRESSION: No acute osseous finding in the right shoulder. Reviewed, dictated and finalized at location K. CLING TECHNICIAN
[2022-10-31 17:05] VITALS: BP 134/83; PULSE 82; RESP 18; TEMP 37.1; O2SAT 99
--- NOTE | 2022-10-31 17:34 | ED.GENADULT ---
HPI - General Adult General Chief complaint: Extremity Injury, Upper Stated complaint: right shoulder pain Time Seen by Provider: 10/31/22 17:17 History of Present Illness HPI narrative: Florence is a 32F with a PMH of anxiety/depression, headaches, and arthritis that presented to the ED with pain in her neck and right shoulder. It started after she held a ladder for someone today but she denies any acute injury or fall. She describes it at severe pain in the front and back of the shoulder that radiates to her fingers. No paralysis or weakness reported. She also is very nauseated. She states that this happens when she gets emotional. She is upset because this is the first time her daughter stayed with her father. Related Data Home Medications Medication Instructions Recorded Confirmed citalopram 40 mg tablet 40 mg PO DAILY 10/05/21 10/31/22 bupropion HCl 100 mg tablet 100 mg PO BID 06/29/22 10/31/22 Allergies Allergy/AdvReac Type Severity Reaction Status Date / Time apple Allergy Swelling Verified 06/29/22 10:32 of Lip/Tongue/Throat banana Allergy Swelling Verified 10/31/22 17:14 of Lip/Tongue/Throat cinnamon Allergy Swelling Verified 10/31/22 17:14 of Lip/Tongue/Throat orange Allergy Swelling Verified 10/31/22 17:14 of Lip/Tongue/Throat pollen extracts Allergy Swelling Verified 10/31/22 17:14 of Lip/Tongue/Throat Review of Systems Review of Systems: All systems reviewed & are unremarkable except as noted in HPI and below PMFSH Past Medical History Medical History Anxiety Arthritis Depression Frequent headaches Surgical History Surgical History H/O nasal polypectomy H/O wrist surgery H/O: Family History Family History Father COPD (chronic obstructive pulmonary disease) Alcohol abuse Grandparent Malignant neoplasm of prostate Diabetes mellitus Hypertension Depression Heart disease Other Breast cancer Diabetes mellitus Hypertension Cerebrovascular accident Mother Depression Social History Social History Smoking status: Never smoker Alcohol intake: never Substance use type: marijuana Living arrangements: with family Exam Const: General: healthy appearing and no acute distress Nutritional Appearance: well nourished HENMT: Head: normal to inspection Eyes: Conjunctivae: conjunctivae normal Pupils: Equal, round and reactive pupils present Neck: Neck: normal visual inspection Chest: Chest palpation & inspection: normal inspection of the chest Resp: Effort & Inspection: normal respiratory effort Cardio: Rate: regular rate Skin: General skin exam: normal color Neuro: General: patient oriented x3 and moves all extremities Cranial nerves: Yes Nystagmus not present Extrem: General: normal to inspection Other: strength symmetrical in the upper extremities, no paresthesia. +Spurling maneuver on the right Psych: Mental Status: mental status grossly normal Course Course Emergency Course: Ordered radiographs, zofran and toradol EXAM:? XR shoulder RT min 2V DATE: 10/31/2022 17:45 HISTORY: right shoulder pain/NO TRAUMA/PATIENT WOULD NOT FOLLOW [facility] . COMPARISON:? None available. FINDINGS:? Normal mineralization. No fracture or dislocation. No lytic or blastic lesion. Joint spaces are maintained. No erosion or periosteal change. Soft tissues within normal limits. IMPRESSION: No acute osseous finding in the right shoulder. EXAM:? [id number]_[id number] DATE: 10/31/2022 17:45 HISTORY: BILAT NECK PAIN/PATIENT COULD NOT LIFT EITHER ARM OR HOLD ST . COMPARISON:? None available. FINDINGS:? Craniocervical association and atlantoaxial joint are aligned. No prevertebral soft tissue swelling. V
[2022-10-31] MEDS: KETOROLAC 30 MG/ML VIAL (*BKC) IM (17:40)
[2022-10-31] MEDS: ONDANSETRON HCL ODT 4 MG TABLET PO (17:40)
== END 2022-10-31 18:15 | disposition home or self-care (01) ==
PROVIDERS: Emergency Provider Family Medicine
DX: S46.011A Strain of muscle(s) and tendon(s) of the rotator cuff of right shoulder, initial encounter (principal); M54.12 Radiculopathy, cervical region; F41.9 Anxiety disorder, unspecified; F32.A Depression, unspecified; X50.0XXA Overexertion from strenuous movement or load, initial encounter
CPT/HCPCS: 72040; 73030; 96372; 99284; A9270; J1885